=== PATIENT | male | born 1945 | race Caucasian/White ===

== ENCOUNTER 2021-09-25 17:35 | Emergency (ER) | payer MEDICARE ==
[~2021-09-25] VITALS: Ht 170.2 cm; Wt 220.0 kg
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
[2021-09-25] MEDS ORDERED: acetaminophen 325mg tablet PO ONE (18:30)
--- NOTE | 2021-09-25 18:36 | NUR ---
PATIENT TO CT AT THIS TIME
--- NOTE | 2021-09-25 18:41 | NUR ---
REPORT TAKEN FROM RN, PATIENT IN STABLE CONDITION AT THIS TIME. PLACED ON THE MONTIOR BED IN LOWEST POSITION.
--- NOTE | 2021-09-25 19:17 | NUR ---
PATIENT AMBULATED TO THE BATHROOM WITH THE ASSISTANCE BY BRETT
[2021-09-25 19:19] VITALS: BP 153/70
== END 2021-09-25 19:20 | disposition home or self-care (01) ==
LOC: EEVIPCON 17:35 → ER 17:35
DX: S09.90XA Unspecified injury of head, initial encounter (principal); M25.551 Pain in right hip; R68.84 Jaw pain; E78.00 Pure hypercholesterolemia, unspecified; E11.9 Type 2 diabetes mellitus without complications; G89.29 Other chronic pain; Z87.19 Personal history of other diseases of the digestive system; Z79.01 Long term (current) use of anticoagulants; Y04.8XXA Assault by other bodily force, initial encounter; Y93.89 Activity, other specified; Y92.89 Other specified places as the place of occurrence of the external cause; Y99.8 Other external cause status
CPT/HCPCS: 70450; 72170; 99284

== ENCOUNTER 2021-10-17 17:12 | Emergency (ER) | payer MEDICARE ==
[~2021-10-17] VITALS: Ht 170.2 cm; Wt 55.0 kg
[2021-10-17 17:35] VITALS: BP 131/76
[2021-10-17 17:55] LABS: BASOPHILS % (AUTO) 0.3 % (0-1); EOSINOPHILS % (AUTO) 0.7 % (0-6); HEMATOCRIT 39.2 % (42.0-52.0); LYMPHOCYTES # (AUTO) 0.4 X10'3 (1.1-4.8); LYMPHOCYTES % (AUTO) 11.3 % (21-51); MEAN CORPUSCULAR HEMOGLOBIN 25.7 PG (27.0-31.0); MEAN CORPUSCULAR HGB CONC 33.2 g/dL (33.0-36.5); MEAN CORPUSCULAR VOLUME 77.3 FL (78-98); MEAN PLATELET VOLUME 6.8 FL (7.4-10.4); MONOCYTES # (AUTO) 0.1 X10'3 (0-0.9); MONOCYTES % (AUTO) 3.6 % (2-12); NEUTROPHILS # (AUTO) 2.8 X10'3 (1.8-7.7); NEUTROPHILS % (AUTO) 84.1 % (42-75); PLATELET COUNT 103 X10'3 (140-440); RED BLOOD COUNT 5.08 X10'6 (4.70-6.10); RED CELL DISTRIBUTION WIDTH 17.5 % (11.5-14.5); WHITE BLOOD COUNT 3.4 X10'3 (4.5-11.0)
[2021-10-17 18:10] LABS: ALANINE AMINOTRANSFERASE 9 U/L (12-78); ALBUMIN 4.1 G/DL (3.4-5.0); ALBUMIN/GLOBULIN RATIO 1.5 (1.1-1.5); ALKALINE PHOSPHATASE 99 IU/L (46-116); ANION GAP 11 (8-16); ASPARTATE AMINO TRANSFERASE 15 U/L (10-37); BILIRUBIN,TOTAL 0.6 MG/DL (0.1-1.0); BLOOD UREA NITROGEN 19 MG/DL (7-18); BUN/CREATININE RATIO 17.1 (5.4-32.0); CALCIUM 9.3 MG/DL (8.5-10.1); CHLORIDE 103 MMOL/L (99-107); CREATININE 1.11 MG/DL (0.60-1.10); GLUCOSE 86 MG/DL (70-104); POTASSIUM 4.2 MMOL/L (3.5-5.1); SODIUM 139 MMOL/L (135-145); TOTAL CARBON DIOXIDE 24.9 MMOL/L (24-32); TOTAL PROTEIN 6.8 G/DL (6.4-8.2); eGFR 65 ML/MIN
== END 2021-10-17 22:05 | disposition left against medical advice (07) ==
LOC: ER 17:13
DX: R06.02 Shortness of breath (principal); Z53.21 Procedure and treatment not carried out due to patient leaving prior to being seen by health care provider
CPT/HCPCS: 36415; 71045; 80053; 82948; 83880; 84484; 85025; 93005

== ENCOUNTER 2021-10-18 03:40 | Emergency (ER) | payer MEDICARE ==
[~2021-10-18] VITALS: Ht 167.6 cm; Wt 97.2 kg
[2021-10-18 07:18] VITALS: BP 152/65
== END 2021-10-18 07:29 | disposition home or self-care (01) ==
LOC: ER 03:42
DX: J06.9 Acute upper respiratory infection, unspecified (principal); F07.81 Postconcussional syndrome; E78.00 Pure hypercholesterolemia, unspecified; E11.9 Type 2 diabetes mellitus without complications; G89.29 Other chronic pain; Z87.19 Personal history of other diseases of the digestive system
CPT/HCPCS: 70450; 99284

== ENCOUNTER 2023-02-07 21:16 | Emergency (ER) | payer MEDICARE ==
[~2023-02-07] VITALS: Ht 170.2 cm; Wt 104.5 kg
[2023-02-07 21:27] VITALS: BP 148/70; PULSE 61; RESP 18; TEMP 97.1; O2SAT 98
[2023-02-07] MEDS ORDERED: INSU100V12 SQ (23:43)
[2023-02-08 01:06] LABS: HEMOGLOBIN 13.2 g/dl (14.0-17.9); MEAN CORPUSCULAR HGB CONC 34.5 g/dL (33.0-36.5)
[2023-02-08 01:08] LABS: BASOPHILS % (AUTO) 0.4 % (0-1); EOSINOPHILS % (AUTO) 1.9 % (0-6); HEMATOCRIT 38.3 % (42.0-52.0); LYMPHOCYTES # (AUTO) 0.6 X10'3 (1.1-4.8); LYMPHOCYTES % (AUTO) 26.1 % (21-51); MEAN CORPUSCULAR HEMOGLOBIN 28.8 PG (27.0-31.0); MEAN CORPUSCULAR VOLUME 83.6 FL (78-98); MEAN PLATELET VOLUME 7.1 FL (7.4-10.4); MONOCYTES # (AUTO) 0.1 X10'3 (0-0.9); MONOCYTES % (AUTO) 5.5 % (2-12); NEUTROPHILS # (AUTO) 1.6 X10'3 (1.8-7.7); NEUTROPHILS % (AUTO) 66.1 % (42-75); PLATELET COUNT 95 X10'3 (140-440); RED BLOOD COUNT 4.58 X10'6 (4.70-6.10); RED CELL DISTRIBUTION WIDTH 15.6 % (11.5-14.5); WHITE BLOOD COUNT 2.4 X10'3 (4.5-11.0)
[2023-02-08 01:16] LABS: ALANINE AMINOTRANSFERASE 21 U/L (12-78); ALBUMIN/GLOBULIN RATIO 1.6 (1.1-1.5); ALKALINE PHOSPHATASE 96 IU/L (46-116); ANION GAP 9 (8-16); ASPARTATE AMINO TRANSFERASE 14 U/L (10-37); BILIRUBIN,TOTAL 0.5 MG/DL (0.1-1.0); BLOOD UREA NITROGEN 19 MG/DL (7-18); BUN/CREATININE RATIO 16.5 (10.0-20.0); CALCIUM 9.4 MG/DL (8.5-10.1); CHLORIDE 102 MMOL/L (99-107); CREATININE 1.15 MG/DL (0.60-1.10); GLUCOSE 158 MG/DL (70-104); POTASSIUM 4.1 MMOL/L (3.5-5.1); SODIUM 138 MMOL/L (135-145); TOTAL CARBON DIOXIDE 26.8 MMOL/L (24-32); TOTAL PROTEIN 6.5 G/DL (6.4-8.2); eGFR 62 ML/MIN
[2023-02-08 01:35] LABS: TOTAL CELLS COUNTED 100
[2023-02-08 01:36] LABS: PLATELET ESTIMATE DECREASED
[2023-02-08] MEDS ORDERED: INSU100V11 SQ (01:37)
== END 2023-02-08 01:53 | disposition home or self-care (01) ==
LOC: ER 21:17
DX: M25.561 Pain in right knee (principal); E11.9 Type 2 diabetes mellitus without complications; Z76.0 Encounter for issue of repeat prescription; E78.00 Pure hypercholesterolemia, unspecified; G89.29 Other chronic pain; M54.9 Dorsalgia, unspecified; Z88.5 Allergy status to narcotic agent; Z79.899 Other long term (current) drug therapy
CPT/HCPCS: 36415; 80053; 82948; 85007; 85025; 99283